=== PATIENT | male | born 1965 | race Two or more races ===

== ENCOUNTER → 2018-04-30 | Outpatient (CLI) | payer SELFPAY ==
--- NOTE | 2018-04-30 11:27 | Diagnostic Imaging Report ---
Exam: Left and right hand 3 views each History: Pain Comparison: None. Findings: No fracture or malalignment. Joint spaces preserved. No abnormal soft tissue calcification or soft tissue defect. Impression: No acute osseous abnormality Signed by: Dr. Jose Rafael Alejo M.D. on 04/30/2018 11:23 AM
== END ==
LOC: RAD 10:32
PROVIDERS: ATTEND Family Medicine
DX: M79.642 Pain in left hand (principal); M79.641 Pain in right hand; E03.9 Hypothyroidism, unspecified